=== PATIENT | female | born 2005 | race Caucasian/White ===

== ENCOUNTER 2023-10-21 18:52 | Emergency (ER) | payer OTHER, SELFPAY ==
[2023-10-21 18:58] VITALS: BP 119/80; PULSE 80; RESP 18; TEMP 37.9; O2SAT 97; BMI 31.6
--- NOTE | 2023-10-21 20:00 | ED.WOUNDLAC ---
HPI - Wound/Laceration General Date Seen: 10/21/23 Chief Complaint: Laceration/Wound Stated Complaint: laceration L hand Time Seen by Provider: 10/21/23 19:29 Source: patient Mode of arrival: ambulatory Limitations: no limitations History of Present Illness HPI narrative: Patient is a 18-year-old female with laceration to left 2nd and 3rd digits. She states she was sitting in a lawn sure when it collapsed accidentally catching her fingers. She has the bleeding controlled and her last tetanus has been within the past 10 years. No other concerns noted. Has full range of motion of her fingers. Related Data Home Medications ?Medication ?Instructions ?Recorded ?Confirmed sertraline 25 mg tablet (Zoloft) 25 mg PO DAILY 10/21/23 10/21/23 Allergies Allergy/AdvReac Type Severity Reaction Status Date / Time cefzil Allergy Unknown Uncoded 10/21/23 19:05 Review of Systems Narrative: Pertinent systems reviewed and were negative unless stated in HPI Exam Narrative: Exam Narrative: Const: Well-nourished, Well-developed, in mild distress Eyes: PERRL, no conjunctival injection, and symmetrical lids HENT: Atraumatic external nose and ears. Moist mucous membranes. Removed MSK:Extremities w/o deformity, Normal Active ROM Skin: Warm, Dry. Superficial laceration to right middle finger between the IP and PIP about 3 or 4 mm dorsal aspect, superficial laceration between PIP and PIP about 3 mm dorsal aspect, laceration on the volar aspect of 2nd digit between the PIP and PIP about 0.5 cm long Neuro: Normal Muscle tone, No focal neurological deficits. Psych: Awake, Alert, & Oriented x3. Appropriate mood and affect. Const: Vital Signs, click to edit/add: Vital Signs - 24 hr 10/21/23 18:58 Temperature 100.3 F H Pulse Rate [Pulse Oximeter] 80 Respiratory Rate 18 Blood Pressure [Ri ght Upper Arm] 119/80 Pulse Oximetry 97 Oxygen Delivery Me thod Room Air Course Vital Signs Vital signs: Initial Vital Signs Temperature 100.3 F H 10/21/23 18:58 Temperature Source Temporal Artery Scan 10/21/23 18:58 Pulse Rate 80 10/21/23 18:58 Respiratory Rate 18 10/21/23 18:58 Blood Pressure 119/80 10/21/23 18:58 Blood Pressure Mean 93 10/21/23 18:58 Blood Pressure Position Sitting 10/21/23 18:58 Pulse Oximetry 97 10/21/23 18:58 Oxygen Delivery Method Room Air 10/21/23 18:58 Vital Signs Temperature 100.3 F H 10/21/23 18:58 Pulse Rate 80 10/21/23 18:58 Respiratory Rate 18 10/21/23 18:58 Blood Pressure 119/80 10/21/23 18:58 Pulse Oximetry 97 10/21/23 18:58 Oxygen Delivery Method Room Air 10/21/23 18:58 Temperature 100.3 F H 10/21/23 18:58 Pulse Rate 80 10/21/23 18:58 Respiratory Rate 18 10/21/23 18:58 Blood Pressure 119/80 10/21/23 18:58 Pulse Oximetry 97 10/21/23 18:58 Oxygen Delivery Method Room Air 10/21/23 18:58 MDM - Wound/Laceration MDM Narrative Medical decision making narrative: Patient is a 18-year-old female presenting for lacerations. She has range of motion and minimal tenderness to the area and I do not believe imaging is necessary. Unlikely to be fractured. She has more superficial lacerations on the dorsal aspect of the 2nd 3rd digits not requiring sutures or glue. Did do laceration repair on 2nd digit left hand. No other concerns noted. Will be discharged. Does not need antibiotics at this time. Discharge Plan Discharge Clinical Impression: Laceration Patient Disposition: Home, Self-Care Condition: Stable Instructions: Finger Laceration (ED) Additional Instructions: Follow-up with your primary care provider or urgent care in the next 7 days to have the 4 sutures removed. For next 6 months, once sutures are removed, whenever you go outside put a dab of sunscreen over the laceration site to improve scar appearance. Topical antibiotics are not necessary at this time. Patient can shower but do not submerge the laceration until sutures are removed Return for re-evaluation if he noticed the entire finger swells up like a sausage, egg a tenderness to the palmar aspect of it, unable to straighten the finger without pain. Prescriptions: No Action sertraline [Zoloft] 25 mg tablet 25 mg PO DAILY Stand Alone Forms: MyHealth Info Instructions Procedures Laceration Fingers: Name of person performing procedure: Abiodun Dubois Site: hand (2nd digit) Side (If applicable): left Size (cm): 0.5 Description: linear and clean Depth: simple, single layer Local Anesthetic: lidocaine 1% (Digital nerve block) Amount of anesthesia used (mL): 4 Pre-repair: wound explored, irrigated extensively and deep structures intact Skin layer closed with: nylon Size (cm): 5-0 Number of sutures: 4
[2023-10-21 20:15] VITALS: BP 115/74; PULSE 75; RESP 18; TEMP 37.3; O2SAT 97
[2023-10-21 20:28] VITALS: BP 115/74; PULSE 75; RESP 18; TEMP 37.3
== END 2023-10-21 20:58 | disposition home or self-care (01) ==
PROVIDERS: Emergency Provider Student in an Organized Health Care Education/Training Program
DX: S61.211A Laceration without foreign body of left index finger without damage to nail, initial encounter (principal); S61.213A Laceration without foreign body of left middle finger without damage to nail, initial encounter; W26.9XXA Contact with unspecified sharp object(s), initial encounter
CPT/HCPCS: 12001; 99282; 99283